=== PATIENT | female | born 1935 | race Caucasian/White ===

== ENCOUNTER → 2017-05-02 | Outpatient (CLI) | payer OTHER ==
[~2017-05-02] MED LIST: ADVAIR 250-501 EACH INH; ASPIRIN325 PO; DILTIAZEM ER180 M1 PO; ESTRADIOL 1 MG T1 M1 PO; FISH OIL 1,001000 M2 PO; FLEXERIL PO; HYDROCODONE-AP1 EAC6 PO; LASIX 40 MG TAB40 M2 PO; LEVOTHYROXINE0.05 MG PO; LIDODERM 5%1 PATC1 TRANSDERM; POTASSIUM20 PO; PRESERVISION A1 EAC2 PO; PROAIR HFA8.5 GM INH; SINGULAIR 10 MG10 M1 PO; TOPROL XL25 MG PO; ZANTAC 150MG T150 MG PO
== END ==
LOC: RAD 11:54
DX: R06.00 Dyspnea, unspecified (principal)

== ENCOUNTER → 2017-06-13 | Outpatient (CLI) | payer OTHER | LOC: CAT 09:53 | DX: J43.1 Panlobular emphysema (principal); K44.9 Diaphragmatic hernia without obstruction or gangrene; R91.1 Solitary pulmonary nodule ==

== ENCOUNTER 2017-12-05 10:05 | Observation (INO) | payer OTHER ==
[~2017-12-05] VITALS: Ht 160 cm; Wt 60.8 kg
--- NOTE | ~2017-12-05 | D ---
[facility] [place] [address] DISCHARGE SUMMARY Name: JILL HINSON Room #: 206-P [facility] M.R.#: [id number] Admission: 12/05/17 Attend Phys: Flakito Carrillo MD Discharge: Date of : 33 Report #: [id number] THIS REPORT FOR: //name// CC: Flakito Kurse [place] DISCHARGE DIAGNOSES: 1. Sick sinus syndrome. 2. Symptomatic bradycardia. 3. Tachycardia-bradycardia syndrome. 4. Atrial fibrillation. PROCEDURES PERFORMED: Dual chamber Biotronik pacemaker implantation. HISTORY: The patient was here for pacemaker implantation. Procedure was successful without complications. She underwent an MRI compatible Biotronik dual chamber pacemaker insertion. HOSPITAL COURSE: The patient was monitored overnight. On the day of discharge, the patient was doing well. She denied chest pain or shortness of breath. PHYSICAL EXAMINATION: HEART: Regular rate and rhythm. LUNGS: Clear to auscultation bilaterally. ABDOMEN: Soft, nontender, nondistended. WOUND: Her incision showed some ecchymosis, but no hematoma. Her device interrogation showed normal device function. Her chest x-ray, which I reviewed, showed normal lead position with no pneumothorax. As such, she was deemed stable for discharge home, where she will resume her same home medications. She will hold her Eliquis until she sees me back in clinic in 7-10 days for a site check as she has been in sinus rhythm. By: [id number] Flakito Carrillo MD /nicole
--- NOTE | ~2017-12-05 | P ---
[facility] [place] [address] PROCEDURE REPORT Name: JILL HINSON Room #: 206-P [facility] M.RGarcia#: [id number] Admission: 12/05/17 Attend Phys: Flakito Carrillo MD Discharge: Date of : 33 Report #: [id number] THIS REPORT FOR: //name// CC: Flakito Westbrook DATE OF SERVICE: 12/05/2017 PROCEDURE: Pacemaker implantation. PREOPERATIVE DIAGNOSIS: Sick sinus syndrome. POSTOPERATIVE DIAGNOSIS: Sick sinus syndrome. HISTORY: The patient is an 82-year-old female with history of paroxysmal atrial fibrillation, as well as a sick sinus syndrome with symptomatic bradycardia. She requires rate control medications and antiarrhythmic drugs and therefore requires a dual chamber pacemaker implantation. ANESTHESIA: The patient underwent MAC anesthesia with no anesthesia related complications. DESCRIPTION OF PROCEDURE: The patient underwent informed consent. We discussed the details of the procedure including the risks, which include but not limited to bleeding, infection, vascular damage, cardiac perforation, and pneumothorax. She understood these risks and was willing to proceed. As such, the patient was brought to the EP laboratory in a fasting and sedated state, prepped and draped in a sterile fashion and the patient received IV antibiotics prior to initiation of the procedure and a venogram was performed showing patency of the left axillary vein. Next, I injected lidocaine below level of the left clavicle. Incision was made. Pocket was created over the prepectoral fascia and access was obtained twice to the left axillary vein with sheath positioned using the modified Seldinger technique. Next, leads were positioned in the right ventricular apex and the lateral right atrium. She did have somewhat of a tortuosity at the SVC to RA junction. The leads were sutured to the prepectoral fascia and connected to the pacemaker. The pacemaker was tested and found to be functioning normally. The pocket was irrigated with vancomycin and the pocket was closed in 3 layers using 2-0 for the deep layer, 3-0 for the mid layer, and 4-0 for the subcuticular. Surgical glue was placed to the outer skin layer. The patient awoke neurologically and hemodynamically intact. No complications and no significant bleed. Implanted pacemaker was a Biotronik Eluna, model #[id number]. The atrial lead was Solia 45 cm, serial #[id number] with a P-wave of 2.4 millivolts, pacing impedance of 460 ohms and the pacing threshold of 0.8 volts at 0.4 milliseconds. The RV lead was a Solia 53 cm, serial #[id number], R waves of 9.6 millivolts, a pacing impedance of 741 ohms, [facility] [address] [place] [address] PROCEDURE REPORT Name: JILL HINSON [place] Room #: 206-P [facility] M.R.#: [id number] Admission: 12/05/17 Attend Phys: Flakito Carrillo MD Discharge: Date of : 33 Report #: [id number] and the pacing threshold 0.8 volts at 0.4 milliseconds. Device was programmed to the DDDR, 60 to 130 mode. CONCLUSIONS: 1. Successful dual-chamber pacemaker implantation. 2. Satisfactory atrial and right ventricular pacing and sensing thresholds. By: 1717 0402 Flakito Carrillo MD /nt
[2017-12-05 10:45] LABS: ABSOLUTE NEUTROPHILS 5.8 thou/uL (1.4-8.2); BASOPHILS 0.7 % (0.0-2.0); EOSINOPHILS 1.3 % (0.0-3.0); HEMOGLOBIN 14.4 gm/dL (12.0-15.0); LYMPHOCYTES 16.5 % (24.0-44.0); MCH 29.3 pg (26.0-34.0); MCHC 33.5 g/dL (28.0-37.0); MCV 87.5 fL (80.0-100.0); MONOCYTES 7.3 % (1.0-8.0); PLATELET COUNT 228 thou/uL (150-400); POLYS 74.2 % (36.0-66.0); RBC 4.91 mil/uL (4.20-5.00); RDW 15.4 % (10.5-14.5); WBC 7.8 thou/uL (4.0-11.0)
[2017-12-05 10:53] LABS: CALCIUM 9.3 mg/dL (8.5-10.1); CREATININE 1.1 mg/dL (0.6-1.0); POTASSIUM 3.4 mmol/L (3.5-5.1)
[2017-12-05 10:55] LABS: APTT 29.3 Seconds (24.5-32.8)
[2017-12-05 10:59] LABS: ALBUMIN 3.7 g/dL (3.4-5.0); TOTAL BILIRUBIN 0.4 mg/dL (<0.1-1.0); TOTAL PROTEIN 7.4 g/dL (6.4-8.2)
[2017-12-05] MEDS ORDERED: ELIQUIS2.5 MG PO (11:00)
[2017-12-05] MEDS ORDERED: ARICEPT 5 MG TAB5 MG PO (11:02)
[2017-12-05] MEDS ORDERED: BREO ELLIPTA 11 EACH INH (11:03)
[2017-12-05] MEDS ORDERED: FLECAINIDE ACET50 M1 PO (11:03)
[2017-12-05] MEDS ORDERED: LASIX 20 MG TAB20 MG PO (11:04)
[2017-12-05] MEDS ORDERED: HYDROCODONE-AP1 EAC6 PO (11:04)
[2017-12-05] MEDS ORDERED: UNICOMPLEX M TA1 TA1 PO (11:06)
[2017-12-05] MEDS ORDERED: SINGULAIR 10 MG10 M1 PO (11:06)
[2017-12-05] MEDS ORDERED: TRAZODONE HCL100 MG PO (11:06)
[2017-12-05] MEDS ORDERED: SPIRIVA INH (11:07)
[2017-12-05] MEDS ORDERED: ZANTAC 150MG T150 MG PO (11:07)
[2017-12-05] MEDS ORDERED: NITROGLYCERIN0.4 MG PO (11:07)
[2017-12-05] MEDS ORDERED: ZANAFLEX4 M2 PO (11:08)
[2017-12-05] MEDS ORDERED: ZINC CHELATE50 MG PO (11:09)
[2017-12-05] MEDS ORDERED: VITAMIN D3400 UNIT PO (11:09)
[2017-12-05 11:15] VITALS: BP 135/52
[2017-12-05] MEDS ORDERED: DULERA 200 MCG/13 GM INH (11:50)
[2017-12-05 18:06] VITALS: BP 159/87
[2017-12-06 05:18] VITALS: BP 136/73
[2017-12-06 08:10] VITALS: BP 154/73
[2017-12-06 11:56] VITALS: BP 126/70
[2017-12-06 13:04] VITALS: BP 126/70
[2017-12-06 13:08] VITALS: BP 126/70
== END 2017-12-06 14:24 | disposition home or self-care (01) ==
LOC: CATH 10:05 → 2N 18:12
PROVIDERS: Internal Medicine Cardiovascular Disease
DX: I48.91 Unspecified atrial fibrillation (principal); I49.5 Sick sinus syndrome; R00.1 Bradycardia, unspecified; E78.5 Hyperlipidemia, unspecified; I11.0 Hypertensive heart disease with heart failure; I50.30 Unspecified diastolic (congestive) heart failure; I35.0 Nonrheumatic aortic (valve) stenosis; J43.9 Emphysema, unspecified; Z87.891 Personal history of nicotine dependence; Z90.710 Acquired absence of both cervix and uterus; Z98.890 Other specified postprocedural states
CPT/HCPCS: 62110; 62900; 70005

== ENCOUNTER 2017-12-06 19:12 | Inpatient (IN) | payer OTHER ==
[~2017-12-06] VITALS: Ht 160 cm; Wt 60.5 kg
--- NOTE | ~2017-12-06 | EKG ---
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 : 1935 Requested By: Chris Nguyen Order Number: [id number] MD: Flakito Carrillo Measurements Intervals [place] Rate: 73 P: AL: 137 QRS: -36 QRSD: 120 T: 28 QT: 457 QTc: 504 Interpretive Statements Atrial-paced complexes Nonspecific IVCD with LAD Compared to ECG 12/06/2017 19:39:16 Sinus rhythm no longer present Left ventricular hypertrophy no longer present Early repolarization no longer present Electronically Signed On 12-09-2017 14:28:41 CDT by Flakito Carrillo [email or web address] <ELECTRONICALLY SIGNED> By: Flakito Carrillo MD 12/09/17 1428 1625 1625 Flakito Carrillo MD /EPI
--- NOTE | ~2017-12-06 | HC ---
[facility] [place] [address] CONSULTATION Name: JILL HINSON Room #: 207-P [facility] IN M.R.#: [id number] Admission: 12/06/17 Attend Phys: Andrae Ford MD Discharge: 12/10/17 Date of : 33 Report #: [id number] THIS REPORT FOR: //name// CC: Andrae Westbrook DATE OF SERVICE: 12/09/2017 HISTORY OF PRESENT ILLNESS: The patient is an 82-year-old white female who just had a pacemaker placed for sick sinus syndrome, was discharged to home and then readmitted the next day after having a syncopal episode. She apparently collapsed. Upon being evaluated, she had some complaints of weakness of her left side. She was seen by Neurology, was noted to have decreased strength left upper and left lower extremity with some mild neglect. CT was negative. Unable to undergo MRI. 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 We are seeing her in rehabilitation medicine consultation. PAST MEDICAL HISTORY: Includes hysterectomy and cholecystectomy, asthma, paroxysmal atrial fibrillation, CHF, aortic stenosis, back surgery, lithotripsy, and hypothyroidism. MEDICATIONS: Please see the full medication listing. It includes vitamins, herbals, and supplements. ALLERGIES: Include SULFA. HABITS: Former smoker 30 years, quit greater than a year ago. Occasional alcohol use, special occasions. SOCIAL HISTORY: House, alone, used a walker. No steps, was independent with basic mobility. She has an involved daughter. REVIEW OF SYSTEMS: Noted to have decreased vision. No chest pain, shortness of breath, abdominal discomfort. No focal extremity pain complaints. PHYSICAL EXAMINATION: GENERAL: An 82-year-old white female in no obvious distress. VITAL SIGNS: Last recorded temperature 97.6, pulse 69, respirations 16, blood pressure 107/60. She is alert, pleasant. HEENT: Appeared to be benign. Face appeared symmetric. She has the left upper chest wall incision, which appears to be intact. EXTREMITIES: Functional range of motion of the right upper and right lower extremity without obvious focal weakness. She moves that left upper extremity, although she notes she is not to lift it up over her head. I would say her strength is grade 4- to 3+/5. Left lower extremity is 4- to 3+. DTRs are 1 to trace. She may have some mild neglect of the left side, although there was [facility] [address] [place] [address] CONSULTATION Name: JILL HINSON Room #: 207-P [facility] IN .R.#: [id number] Admission: 12/06/17 Attend Phys: Andrae Ford MD Discharge: 12/10/17 Date of : 33 Report #: [id number] reasonable intactness to simultaneous stimulation. She is standby assistance for basic supine to sit. She is ambulating a short distance with a front-wheeled walker with contact guard assistance. ASSESSMENT: An 82-year-old white female with the following problems: 1. Clinical evidence of a CVA with some mild left-sided weakness and mild neglect. 2. Pacemaker implantation for sick sinus syndrome on 12/05/2017. 3. Syncopal event 12/06/2017. 4. History of atrial fibrillation, on Eliquis. 5. Legally blind. 6. History of congestive heart failure. 7. Past back surgery. 8. Aortic stenosis. PLAN: The patient is a candidate for a short acute in-hospital, inpatient rehabilitation stay. The goal will be to maximize her functional independence, so that she can hopefully return back to her prior living situation. She is a good candidate for an acute in-hospital inpatient rehabilitation stay and she appears amenable to the same. We will be glad to follow along with you. I would anticipate likely transfer up to the rehab nguyễn tomorrow if medically cleared. The patient appears amendable. <ELECTRONICALLY SIGNED> By: Nino Lawrence MD 12/12/17 1228 1536 19 Nino Lawrence MD /nt
--- NOTE | ~2017-12-06 | HC ---
[facility] [place] [address] CONSULTATION Name: JILL HINSON Room #: 207-P ADM IN M.R.#: [id number] Admission: 12/06/17 Attend Phys: Andrae Ford MD Discharge: Date of : 33 Report #: [id number] THIS REPORT FOR: //name// CC: Andrae Westbrook DATE OF SERVICE: 12/08/2017 HISTORY OF PRESENT ILLNESS: This is an 82-year-old female patient who was evaluated by me for stroke protocol. This patient's history was reviewed and I talked to Dr. Ford. I talked to the nurses looking after this patient and I talked to the patient's daughter. This patient had a pacemaker put in. Then, the patient had an episode of syncope on Friday. Then, the patient was noticed to be weak on the left side when she tries to walk. Time of onset is not clear at all. She was lying and when she tried to walk, she had difficulty walking. So, it looks like she has some weakness and neglect there and it could have happened any time. The patient has atrial fibrillation and her Eliquis was held because she has a pacemaker put in. Talking to Dr. Ford, it would indicate he has talked to Dr. Carrillo, the environmental remediation consultant, and he indicated that he would like to wait about 2 weeks before the MRI can be done in this patient. REVIEW OF SYSTEMS: Indicate that she has a pacemaker put in. She has weakness. She is legally blind because of macular degeneration. She had injections done there. A 14-point review of system was carried out and it was positive for above. She also appeared to have a history of aortic insufficiency. PAST MEDICAL HISTORY: Positive for cardiac problem. FAMILY HISTORY: Negative for any stroke. SOCIAL HISTORY: She used to smoke. PHYSICAL EXAMINATION: Indicate she is alert. She is responsive. Her speech looks unremarkable. Cranial nerve examination 2-12 indicate problem with vision. She has slight left facial palsy. She has weakness in the left upper and left lower extremity. Strength is about 3-4/5. Her position sense is diminished on the left side as compared to the right side. Reflexes look symmetrical. Vital signs indicate a blood pressure of 150/76, pulse is 67, temperature is 97.7. CT scan showed chronic changes, but no acute changes. IMPRESSION: This patient's clinical presentation is consistent with cerebrovascular accident. Management is difficult [place] [address] CONSULTATION Name: JILL HINSON Room #: [address] [place] [address] IN ..#: [id number] Admission: 12/06/17 Attend Phys: Andrae Ford MD Discharge: Date of : 33 Report #: [id number] talked to the environmental remediation consultant. RECOMMENDATION: 1. I do not believe this patient is TPA candidate. She was on Eliquis, which has been recently discontinued and she has a recent pacemaker put in and the time of onset is not clear. Whether she is a candidate for clot retrieval or not, I am not sure. I discussed CT angiogram. I discussed this potential complication as well as alternative with the patient and the daughter and they understand it. We will go ahead and do the CT angio. I asked Dr. Ford to give some fluid bolus and until CT angio shows something they will just have to observe this patient. I will dictate an addendum after I get the patient's CT angio. after the above the patient's CT angiogram was reviewed. It does not show any definite abnormality. The patient was updated on that. Her options were discussed with her. She continued to be managed conservatively. More than 50 minutes of time was spent taking care of this patient and majority of that time was spent counseling the patient and the daughter and coordinating her care <ELECTRONICALLY SIGNED> By: Raji Do MD 12/09/17 1357 1805 2334 Raji Do MD /nt
--- NOTE | ~2017-12-06 | EKG ---
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 : 1935 Requested By: Mili Rodarte Order Number: [id number] MD: Flakito Carrillo Measurements Intervals [place] Rate: 70 P: 62 MS: 180 QRS: -38 QRSD: 111 T: 76 QT: 418 QTc: 452 Interpretive Statements Sinus rhythm Probable left atrial enlargement Abnormal R-wave progression, late transition LVH with IVCD, LAD and secondary repol abnrm Baseline wander in lead(s) II,III,aVF Compared to ECG 10/23/2016 16:52:57 Intraventricular conduction delay now present Early repolarization now present Electronically Signed On 12-06-2017 21:39:41 CDT by Flakito Carrillo [email or web address] <ELECTRONICALLY SIGNED> By: Flakito Carrillo MD 12/06/172138 38 38 Flakito Carrillo MD /EPI
--- NOTE | ~2017-12-06 | 2DMMODE ---
[facility] [address] [place] [address] 2 D/M-MODE ECHOCARDIOGRAM Name: JOYAJILL [place] Room #: 207-P ADM IN [facility].#: [id number] Admission: 12/06/17 Attend Phys: Crhis Nguyen MD Discharge: Date of : 33 Date of Service: 12/07/17 1033 Report #: [id number] THIS REPORT FOR: //name// APPROVED REPORT Study performed: 12/07/2017 07:03:42 EXAM: Comprehensive 2D, Doppler, and color-flow Echocardiogram Patient Location: Bedside Room #: 207 Status: routine BSA: 1.62 HR: 70 bpm BP: 144/72 mmHg Other Information Study Quality: Technically Limited Technically limited study due to lung disease. Indications Congestive Heart Failure Atrial Fibrillation Syncope S/P pacemaker 12/05/2017 2D Dimensions RVDd: 30.95 mm LVEF(%): 62.18 (>50%) IVSd: 11.61 (7-11mm) LVOT Diam: 18.73 (18-24mm) LVDd: 27.14 mm PWd: 11.77 (7-11mm) LVDs: 18.44 (25-40mm) IVC: 18.00 mm Long's LVEF: 62.18 % Volumes Left Atrial Volume (Systole) Single Plane 4CH: 27.77 mL Single Plane 2CH: 34.64 mL LA ESV Index: 23.00 mL/m2 Aortic Valve AoV Peak Austin.: 2.13 m/s AO Peak Gr.: 18.10 mmHg LVOT Max P.57 mmHg AO Mean Gr.: 7.60 mmHg LVOT Mean P.15 mmHg AO V2 Mean: 1.26 m/s LVOT Max V: 1.37 m/s [facility] [place] [address] 2 D/M-MODE ECHOCARDIOGRAM Name: JILL HINSON [facility] Room #: 207-P [facility] IN .R.#: [id number] Admission: 12/06/17 Attend Phys: Chris Nguyen MD Discharge: Date of : 33 Date of Service: 12/07/17 1033 Report #: [id number] AO V2 VTI: 39.66 cm LVOT Mean V: 0.95 m/s CORNEL (VTI): 2.19 cm2 LVOT V1 VTI: 31.49 cm CORNEL Vmax: 1.78 cm2 AI Vmax: 4.84 m/s SV (LVOT): 86.67 mL AI Montour: 3.64 m/s2 AI PHT: 385.09 ms Mitral Valve E/A Ratio: 0.5 MV Decel. Time: 327.47 ms MV E Max Austin.: 0.53 m/s MV A Austin.: 1.13 m/s MV PHT: 94.97 ms Tricuspid Valve TR Peak Austin.: 2.35 m/s RAP Estimate: 5.00 mmHg TR Peak Gr.: 22.13 mmHg PA Pressure: 27.00 mmHg Left Ventricle The left ventricle is normal size. Mild concentric left ventricular hypertrophy. The left ventricular systolic function is normal. The left ventricular ejection fraction is within the normal range. LVEF is 60%. Grade I - abnormal relaxation pattern. Right Ventricle The right ventricle is normal size. The right ventricular systolic function is normal. Atria The left atrium size is normal. The right atrium size is normal. Aortic Valve Aortic valve is mildly calcified. Moderate aortic regurgitation. Mild aortic valve stenosis. Calculated aortic valve area is 1.7 cm2 with maximum pressure gradient of 18 mmHg and mean pressure gradient of 8 mmHg. Mitral Valve Mild mitral annular calcification. Mild mitral regurgitation. No evidence of mitral valve stenosis. Tricuspid Valve The tricuspid valve is normal in structure. Mild tricuspid regurgitation. PAP is estimated at 27 mmHg. [facility] [address] [place] [address] 2 D/M-MODE ECHOCARDIOGRAM Name: JILL HINSON [place] Room #: 207-P [facility] IN ..#: [id number] Admission: 12/06/17 Attend Phys: Chris Nguyen MD Discharge: Date of : 33 Date of Service: 12/07/17 1033 Report #: [id number] Great Vessels IVC is normal in size and collapses >50% with inspiration. 2.5cm long x 1.5cm wide oval calcified structure at/near IVC-RA junction, appears probably extrinsic to IVC Pericardium There is no pericardial effusion. Critical Notification Physician Notified Date: 12/07/2017 Time: 10:33 <Conclusion> The left ventricular systolic function is normal. LVEF is 60%. Mild diastolic dysfunction Aortic valve is mildly calcified. Moderate aortic regurgitation. Mild aortic valve stenosis. Calculated aortic valve area is 1.7 cm2 with maximum pressure gradient of 18 mmHg and mean pressure gradient of 8 mmHg. Mild mitral annular calcification. Mild mitral regurgitation. IVC is normal in size and collapses >50% with inspiration. 2.5cm long x 1.5cm wide oval echodense structure at/near IVC-RA junction, appears probably extrinsic to IVC. Unknown etiology. Consider further radiographic imaging There is no pericardial effusion. <ELECTRONICALLY SIGNED> By: Ike Ross MD, [facility] 12/07/17 1033 1033 1033 Ike Ross MD, FACC /INF
[~2017-12-06 19:12] MED LIST changes: +ARICEPT 5 MG TAB5 MG PO; +BREO ELLIPTA 11 EACH INH; +DULERA 200 MCG/13 GM INH; +ELIQUIS2.5 MG PO; +FLECAINIDE ACET50 M1 PO; +LASIX 20 MG TAB20 MG PO; +NITROGLYCERIN0.4 MG PO; +SPIRIVA INH; +TRAZODONE HCL100 MG PO; +UNICOMPLEX M TA1 TA1 PO; +VITAMIN D3400 UNIT PO; +ZANAFLEX4 M2 PO; +ZINC CHELATE50 MG PO
[2017-12-06 19:40] VITALS: BP 154/78
[2017-12-06 20:28] LABS: ABSOLUTE NEUTROPHILS 5.1 thou/uL (1.4-8.2); BASOPHILS 0.7 % (0.0-2.0); EOSINOPHILS 1.1 % (0.0-3.0); HEMATOCRIT 40.6 % (37.0-47.0); HEMOGLOBIN 13.5 gm/dL (12.0-15.0); LYMPHOCYTES 17.6 % (24.0-44.0); MCH 29.2 pg (26.0-34.0); MCHC 33.4 g/dL (28.0-37.0); MCV 87.4 fL (80.0-100.0); MONOCYTES 10.7 % (1.0-8.0); PLATELET COUNT 178 thou/uL (150-400); POLYS 69.9 % (36.0-66.0); RBC 4.64 mil/uL (4.20-5.00); RDW 15.2 % (10.5-14.5); WBC 7.3 thou/uL (4.0-11.0)
[2017-12-06 20:35] LABS: ANION GAP 7 mmol/L (7-16); BUN 22 mg/dL (7-18); CALCIUM 9.4 mg/dL (8.5-10.1); CHLORIDE 102 mmol/L (98-107); CO2 25 mmol/L (21-32); CREATININE 1.1 mg/dL (0.6-1.0); GLUCOSE 104 mg/dL (74-106); POTASSIUM 3.5 mmol/L (3.5-5.1); SODIUM 134 mmol/L (136-145)
[2017-12-06 20:44] LABS: TROPONIN-I < 0.04 ng/mL (<0.06)
[2017-12-06 21:55] VITALS: BP 150/65
[2017-12-06 22:09] VITALS: BP 167/79
[2017-12-07 04:09] VITALS: BP 144/72
[2017-12-07 08:00] VITALS: BP 133/69
[2017-12-07 09:00] VITALS: BP 103/63; BP 135/60; BP 141/61
[2017-12-07 12:00] VITALS: BP 153/75
[2017-12-07 16:00] VITALS: BP 125/72
[2017-12-07 21:13] VITALS: BP 121/51
[2017-12-08 04:28] VITALS: BP 115/60
[2017-12-08 05:40] LABS: CALCIUM 8.2 mg/dL (8.5-10.1); CREATININE 0.8 mg/dL (0.6-1.0); POTASSIUM 3.3 mmol/L (3.5-5.1)
[2017-12-08 08:00] VITALS: BP 113/56; BP 88/51
[2017-12-08 12:11] VITALS: BP 137/69
[2017-12-08 14:59] VITALS: BP 135/67
[2017-12-08 16:26] VITALS: BP 150/76
[2017-12-08 21:06] VITALS: BP 138/51
[2017-12-09] VITALS (8 sets, daily range): BP systolic 107–152; BP diastolic 50–72
[2017-12-09 16:09] LABS: CALCIUM 8.8 mg/dL (8.5-10.1); CREATININE 0.9 mg/dL (0.6-1.0); POTASSIUM 4.2 mmol/L (3.5-5.1)
[2017-12-10 03:13] LABS: HEMATOCRIT 34.7 % (37.0-47.0); HEMOGLOBIN 11.6 gm/dL (12.0-15.0); MCH 29.2 pg (26.0-34.0); MCHC 33.6 g/dL (28.0-37.0); RBC 3.98 mil/uL (4.20-5.00); RDW 14.7 % (10.5-14.5); WBC 5.2 thou/uL (4.0-11.0)
[2017-12-10 03:38] LABS: ANION GAP 5 mmol/L (7-16); BUN 23 mg/dL (7-18); CALCIUM 8.5 mg/dL (8.5-10.1); CHLORIDE 107 mmol/L (98-107); CHOLESTEROL 202 mg/dL (<200); CO2 29 mmol/L (21-32); CREATININE 0.9 mg/dL (0.6-1.0); GLUCOSE 94 mg/dL (74-106); HDL CHOLESTEROL 46 mg/dL (>40); LDL CHOLESTEROL 139 mg/dL (<100); POTASSIUM 4.4 mmol/L (3.5-5.1); SODIUM 141 mmol/L (136-145); TC:HDL 4.4 Ratio (Not establshd); TRIGLYCERIDE 86 mg/dL (<150); VLDL 17 mg/dL (<40)
[2017-12-10 03:57] LABS: SERUM ASSESSMENT Clear
[2017-12-10 04:25] VITALS: BP 128/67
[2017-12-10 08:18] VITALS: BP 149/75
[2017-12-10 11:05] VITALS: BP 129/54
[2017-12-10] MEDS ORDERED: ASPIR 8181 MG PO (12:36)
[2017-12-10] MEDS ORDERED: ELIQUIS2.5 MG PO (12:36)
== END 2017-12-10 13:30 | DRG 64 ==
LOC: ER 19:12 → 2N 21:07 → EROBS 21:07 → 2N 21:55
PROVIDERS: Emergency Medicine; Hospitalist; Internal Medicine Cardiovascular Disease; Psychiatry & Neurology Neuromuscular Medicine
DX: I63.9 Cerebral infarction, unspecified (principal); E43 Unspecified severe protein-calorie malnutrition; R55 Syncope and collapse; I50.9 Heart failure, unspecified; J45.909 Unspecified asthma, uncomplicated; I49.5 Sick sinus syndrome; I48.0 Paroxysmal atrial fibrillation; E03.9 Hypothyroidism, unspecified; Z60.2 Problems related to living alone; I35.0 Nonrheumatic aortic (valve) stenosis; H54.8 Legal blindness, as defined in USA; Z90.710 Acquired absence of both cervix and uterus; Z90.49 Acquired absence of other specified parts of digestive tract; Z87.442 Personal history of urinary calculi; Z79.899 Other long term (current) drug therapy; Z79.82 Long term (current) use of aspirin; Z88.2 Allergy status to sulfonamides; Z95.0 Presence of cardiac pacemaker; Z87.891 Personal history of nicotine dependence
CPT/HCPCS: 10081

== ENCOUNTER 2018-01-18 18:31 | Emergency (ER) | payer OTHER ==
[~2018-01-18] VITALS: Ht 160 cm; Wt 60.3 kg
--- NOTE | ~2018-01-18 | EKG ---
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 : 1935 Requested By: Mikel Baker Order Number: [id number] MD: Ike Ross Measurements Intervals [place] Rate: 60 P: AL: 131 QRS: -37 QRSD: 119 T: 38 QT: 506 QTc: 506 Interpretive Statements Atrial-paced rhythm Nonspecific intraventricular conduction delay Baseline wander in lead(s) V1,V2 Compared to ECG 12/08/2017 16:25:24 No significant change was found Electronically Signed On 01-19-2018 8:26:14 CDT by Ike Ross [email or web address] <ELECTRONICALLY SIGNED> By: Ike Ross MD, [facility] 01/19/18 0826 1908 07 Ike Ross MD, [facility] /EPI
[~2018-01-18 18:31] MED LIST changes: +ASPIR 8181 MG PO; +COLACE100 MG PO; +LIPITOR10 MG PO; +VITAMIN B-12500 MCG PO
[2018-01-18 19:18] LABS: ABSOLUTE NEUTROPHILS 3.9 thou/uL (1.4-8.2); BASOPHILS 0.6 % (0.0-2.0); EOSINOPHILS 3.6 % (0.0-3.0); HEMATOCRIT 37.6 % (37.0-47.0); HEMOGLOBIN 12.6 gm/dL (12.0-15.0); LYMPHOCYTES 18.2 % (24.0-44.0); MCH 29.8 pg (26.0-34.0); MCHC 33.6 g/dL (28.0-37.0); MCV 88.7 fL (80.0-100.0); MONOCYTES 10.1 % (1.0-8.0); PLATELET COUNT 184 thou/uL (150-400); POLYS 67.5 % (36.0-66.0); RBC 4.24 mil/uL (4.20-5.00); RDW 14.5 % (10.5-14.5); WBC 5.7 thou/uL (4.0-11.0)
[2018-01-18 19:27] LABS: ANION GAP 7 mmol/L (7-16); BUN 29 mg/dL (7-18); CALCIUM 8.8 mg/dL (8.5-10.1); CHLORIDE 103 mmol/L (98-107); CO2 28 mmol/L (21-32); CREATININE 1.3 mg/dL (0.6-1.0); GLUCOSE 109 mg/dL (74-106); SODIUM 138 mmol/L (136-145)
[2018-01-18 19:35] LABS: ALBUMIN 3.6 g/dL (3.4-5.0); SGOT 16 U/L (15-37); SGPT 19 U/L (30-65); TOTAL BILIRUBIN 0.2 mg/dL (<0.1-1.0); TOTAL PROTEIN 6.7 g/dL (6.4-8.2); TROPONIN-I <0.06 ng/mL (<0.06)
[2018-01-18 20:09] LABS: URINE BILIRUBIN NEGATIVE (Negative); URINE BLOOD NEGATIVE (Negative); URINE CLARITY CLEAR; URINE COLOR YELLOW; URINE GLUCOSE-RANDOM* NEGATIVE (Negative); URINE KETONES NEGATIVE (Negative); URINE LEUKOCYTES-REFLEX NEGATIVE (Negative); URINE NITRITE-REFLEX NEGATIVE (Negative); URINE PROTEIN (DIPSTICK) NEGATIVE (Negative); URINE UROBILINOGEN 0.2 E.U./dl (0.2-1.0)
== END 2018-01-18 21:25 | disposition home or self-care (01) ==
LOC: ER 18:31
PROVIDERS: Emergency Medicine
DX: E87.6 Hypokalemia (principal); I48.91 Unspecified atrial fibrillation; J45.909 Unspecified asthma, uncomplicated; I50.9 Heart failure, unspecified; E03.9 Hypothyroidism, unspecified; Z90.49 Acquired absence of other specified parts of digestive tract; Z90.710 Acquired absence of both cervix and uterus; Z95.0 Presence of cardiac pacemaker; Z88.1 Allergy status to other antibiotic agents